=== PATIENT | female | born 2000 | race Caucasian/White ===

== ENCOUNTER 2022-02-27 10:18 | Emergency (ER) | payer SELFPAY ==
[~2022-02-27] VITALS: Ht 182.9 cm; Wt 70.3 kg
[2022-02-27 10:20] VITALS: BP 128/89
== END 2022-02-27 10:51 | disposition left against medical advice (07) ==
LOC: EDUNIT# 10:18 → EDBD 10:18 → ER 10:18
DX: H92.01 Otalgia, right ear (principal); Z53.21 Procedure and treatment not carried out due to patient leaving prior to being seen by health care provider

== ENCOUNTER 2022-03-01 00:17 | Emergency (ER) | payer MEDICAID, OTHER ==
[2022-03-01 00:43] VITALS: BP 121/74
== END 2022-03-01 05:07 | disposition left against medical advice (07) ==
LOC: ER 00:17
DX: R22.0 Localized swelling, mass and lump, head (principal); R51.9 Headache, unspecified; Z53.21 Procedure and treatment not carried out due to patient leaving prior to being seen by health care provider

== ENCOUNTER 2022-05-27 20:14 | Emergency (ER) | payer MEDICAID ==
[~2022-05-27] VITALS: Ht 182.9 cm; Wt 68.0 kg
[2022-05-27 23:16] LABS: Urine Bacteria FEW /hpf (None Seen); Urine Blood 1+ /uL (Negative); Urine Mucus FEW (None Seen); Urine Specific Gravity 1.029 (1.001-1.035); Urine WBC 40 /hpf (0 - 5)
[2022-05-28] MEDS ORDERED: DOXY-346 PO (00:53)
[2022-05-28] MEDS ORDERED: PENICILLIN G BENZ 1200000 UNITS/2 ML SYRG IM ONE (01:00)
[2022-05-28] MEDS ORDERED: ACETAMINOPHEN/CODEINE#3 (300/30mg) TAB PO ONE (01:00)
[2022-05-28] MEDS ORDERED: cefTRIAXone SOD 500 MG VL IM ONE (01:00)
[2022-05-28 01:59] VITALS: BP 131/68
== END 2022-05-28 02:04 | disposition home or self-care (01) ==
LOC: ER 20:14
DX: A51.9 Early syphilis, unspecified (principal); J45.909 Unspecified asthma, uncomplicated; F17.210 Nicotine dependence, cigarettes, uncomplicated; F12.10 Cannabis abuse, uncomplicated; Z59.00 Homelessness unspecified
CPT/HCPCS: 81001; 96372; 99284; J0561; J0696

== ENCOUNTER 2023-03-29 18:05 | Observation (INO) | payer MEDICAID ==
[~2023-03-29] VITALS: Ht 177.8 cm; Wt 77.1 kg
[~2023-03-29 18:05] MED LIST: DOXY-346 PO
[2023-03-29 20:47] LABS: Alcohol, Urine < 3.0 mg/dL (0-10); Amphetamine Screen, Urine POSITIVE (NEGATIVE); Barbiturate Scree,Urine NEGATIVE (NEGATIVE); Cannabinoid Screen, Urine POSITIVE (NEGATIVE)
[2023-03-29 20:55] LABS: Benzodiazephine Screen, Urine NEGATIVE (NEGATIVE); Cocaine Screen, Urine POSITIVE (NEGATIVE); Opiate Scree,Urine NEGATIVE (NEGATIVE); Phencyclidine Screen, Urine NEGATIVE (NEGATIVE)
[2023-03-29 22:18] LABS: Basophils # (auto) 0.1 10 ^3/uL (0-0.2); Basophils % (auto) 0.4 % (0.0-2.0); Eosinophils # (auto) 0.2 10 ^3/uL (0-0.8); Eosinophils % (auto) 1.6 % (0.0-7.0); Hemoglobin 11.7 g/dL (12.2-16.2); Lymphocytes % (auto) 21.7 % (10.0-50.0); Mean Corpuscular Hemoglobin 29.1 pg (28.0-32.0); Mean Corpuscular Hgb Conc. 32.6 g/dL (32.0-36.0); Mean Corpuscular Volume 89.1 fL (80.0-100.0); Monocytes # (auto) 1.1 10 ^3/uL (0-1.3); Neutrophils # (auto) 9.5 10 ^3/uL (1.6-8.6); Neutrophils % (auto) 68.3 % (37.0-80.0); Nucleated Red Blood Cells % 0.1 %; Red Blood Cells 4.04 10^6/uL (4.0-5.20); Red Cell Distribution Width 14.3 % (11.8-14.3); White Blood Cell 13.9 10^3/uL (4.4-10.8)
[2023-03-29 22:34] LABS: INR 0.92 (0.9-1.15); Partial Thromboplastin Time 26.9 SEC (24.5-34.5); Prothrombin Time 9.7 sec (9.3-11.8)
[2023-03-29 22:37] LABS: Albumin 2.8 g/dL (3.4-5.0); Calcium 8.4 mg/dL (8.5-10.1); Potassium 3.5 mmol/L (3.5-5.1)
[2023-03-29 22:40] LABS: BUN/Creatinine Ratio 10.5 (10.0-20.0); Bilirubin, Total 0.4 mg/dL (0.2-1.0); Total Protein 6.6 g/dL (6.4-8.2)
[2023-03-29] MEDS ORDERED: PRENCAP11 PO (23:32)
[2023-03-31 08:06] LABS: Rubella Antibodies, IgG 4.03 index (Immune >0.99)
== END 2023-03-30 01:40 | disposition home or self-care (01) ==
LOC: LDRP 18:05
PROVIDERS: ADMIT Obstetrics & Gynecology; ATTEND Obstetrics & Gynecology
DX: O99.322 Drug use complicating pregnancy, second trimester (principal); F15.10 Other stimulant abuse, uncomplicated; F12.10 Cannabis abuse, uncomplicated; O09.32 Supervision of pregnancy with insufficient antenatal care, second trimester; O99.332 Smoking (tobacco) complicating pregnancy, second trimester; F17.210 Nicotine dependence, cigarettes, uncomplicated; Z3A.26 26 weeks gestation of pregnancy
CPT/HCPCS: 36415; 59025; 76805; 80053; 80307; 81002; 83036; 85025; 85610; 85730; 86592; 86703; 86762; 86850; 86900; 86901; 87340; 94760; G0378

== ENCOUNTER 2023-06-03 11:50 | Observation (INO) | payer MEDICAID ==
[~2023-06-03 11:50] MED LIST changes: -DOXY-346 PO; +PRENCAP11 PO
== END 2023-06-03 13:32 | disposition home or self-care (01) ==
LOC: UNDOADMOB 11:50 → LDRP 11:50 → UNDODISOB 13:32
PROVIDERS: ADMIT Obstetrics & Gynecology; ATTEND Obstetrics & Gynecology
DX: O98.113 Syphilis complicating pregnancy, third trimester (principal); O26.893 Other specified pregnancy related conditions, third trimester; N89.8 Other specified noninflammatory disorders of vagina; Z3A.36 36 weeks gestation of pregnancy
CPT/HCPCS: 59025; 76818; 81002; 94760; G0378

== ENCOUNTER 2023-06-27 15:05 | Observation (INO) | payer MEDICAID | END 2023-06-27 16:52 | disposition home or self-care (01) | LOC: LDRP 15:05 → UNDOADMOB 15:05 → LDRP 15:12 → UNDODISOB 16:52 | PROVIDERS: ADMIT Obstetrics & Gynecology; ATTEND Obstetrics & Gynecology | DX: O99.323 Drug use complicating pregnancy, third trimester (principal); O99.333 Smoking (tobacco) complicating pregnancy, third trimester; O98.213 Gonorrhea complicating pregnancy, third trimester; O98.113 Syphilis complicating pregnancy, third trimester; O62.9 Abnormality of forces of labor, unspecified; F12.10 Cannabis abuse, uncomplicated; A53.9 Syphilis, unspecified; A54.9 Gonococcal infection, unspecified; F17.210 Nicotine dependence, cigarettes, uncomplicated; Z3A.39 39 weeks gestation of pregnancy | CPT/HCPCS: 59025; 76818; 81002; G0378 ==

== ENCOUNTER 2023-06-30 04:51 | Inpatient (IN) | payer MEDICAID ==
[~2023-06-30] VITALS: Ht 175.3 cm; Wt 87.5 kg
[2023-06-30] MEDS ORDERED: PENICILLIN G POT 5MIL/D5 50ML 50 ML IV ONE (05:15)
[2023-06-30] MEDS ORDERED: LACTATED RINGER'S 1,000 ML IV SCH (05:15)
[2023-06-30] MEDS ORDERED: LIDOCAINE 2%HCL (LOCAL ANESTH.) INJ 20ML MDV IJ PRN (05:15)
[2023-06-30] MEDS ORDERED: PHISODERM TOP SOLN 240ML BTL TOP PRN (05:15)
[2023-06-30] MEDS ORDERED: PROMETHAZINE HCL 25 MG/ML 1ML IV PRN (05:15)
[2023-06-30] MEDS ORDERED: LACT. RINGERS/OXYTOCIN 20UNITS 1,000 ML IV ONE (05:42)
[2023-06-30] MEDS ORDERED: LACT. RINGERS/OXYTOCIN 20UNITS 500 ML IV ONE ×2 (05:45→06:15)
[2023-06-30] MEDS ORDERED: METHYLERGONOVINE MALEATE 0.2 MG/ML AMP IM PRN (05:45)
[2023-06-30] MEDS ORDERED: CARBOPROST TROMETHAMINE 250 MCG/1ML VIAL IM PRN (05:45)
[2023-06-30] MEDS ORDERED: miSOPROStol 100 mcg TAB SL PRN (05:45)
[2023-06-30] MEDS ORDERED: miSOPROStol 100 mcg TAB PR PRN (05:45)
[2023-06-30 06:14] LABS: Basophils # (auto) 0.2 10 ^3/uL (0-0.2); Basophils % (auto) 0.9 % (0.0-2.0); Eosinophils # (auto) 0.2 10 ^3/uL (0-0.8); Eosinophils % (auto) 0.9 % (0.0-7.0); Hematocrit 37.9 % (36.0-46.0); Hemoglobin 12.5 g/dL (12.2-16.2); Lymphocytes % (auto) 14.9 % (10.0-50.0); Mean Corpuscular Hemoglobin 28.6 pg (28.0-32.0); Mean Corpuscular Hgb Conc. 33.1 g/dL (32.0-36.0); Mean Corpuscular Volume 86.6 fL (80.0-100.0); Monocytes # (auto) 1.2 10 ^3/uL (0-1.3); Monocytes % (auto) 6.1 % (0.0-12.0); Neutrophils # (auto) 15.5 10 ^3/uL (1.6-8.6); Neutrophils % (auto) 77.2 % (37.0-80.0); Nucleated Red Blood Cells % 0.1 %; Red Blood Cells 4.37 10^6/uL (4.0-5.20); Red Cell Distribution Width 16.3 % (11.8-14.3); White Blood Cell 20.1 10^3/uL (4.4-10.8)
[2023-06-30 06:27] LABS: Alanine Aminotransferase 12 U/L (7-40); Albumin 3.8 g/dL (3.2-4.8); Alkaline Phosphatase 168 U/L (46-116); Anion Gap 9 (5-15); Aspartate Aminotransferase 12 U/L (13-40); BUN/Creatinine Ratio 11.1 (10.0-20.0); Blood Urea Nitrogen 6 mg/dL (9-23); Calcium 8.6 mg/dL (8.7-10.4); Carbon Dioxide 20 mmol/L (20-30); Chloride 108 mmol/L (98-107); Glucose 89 mg/dL (74-106); Potassium 3.6 mmol/L (3.5-5.1); Sodium 137 mmol/L (136-145)
[2023-06-30 06:35] LABS: INR 0.94 (0.9-1.15); Prothrombin Time 9.9 sec (9.3-11.8)
[2023-06-30 06:43] LABS: Fern Testing Positive
[2023-06-30] MEDS ORDERED: ePHEDrine SULFATE 50 MG/ML AMP IV ONE (07:00)
[2023-06-30] MEDS ORDERED: ROPIVACAINE HCL 200 ML EPI SCH (07:00)
[2023-06-30] MEDS ORDERED: ROPIVACAINE HCL 0 ML ONE (07:03)
[2023-06-30 08:03] LABS: Urine Bacteria NONE SEEN /hpf (None Seen); Urine Blood Negative /uL (Negative); Urine Clarity Clear (Clear); Urine Color Yellow (Yellow); Urine Mucus FEW (None Seen); Urine Protein, UAD TRACE (Negative); Urine Specific Gravity 1.022 (1.001-1.035); Urine Urobilinogen Normal (Negative); Urine WBC 1 /hpf (0 - 5); Urine pH 6.5 (5.0-8.0)
[2023-06-30 08:14] LABS: Amphetamine Screen, Urine Neg (NEGATIVE); Barbiturate Scree,Urine Neg (NEGATIVE); Benzodiazephine Screen, Urine Neg (NEGATIVE); Cocaine Screen, Urine Neg (NEGATIVE)
[2023-06-30 08:15] LABS: Cannabinoid Screen, Urine Pos (NEGATIVE); Opiate Scree,Urine Neg (NEGATIVE); Phencyclidine Screen, Urine Neg (NEGATIVE)
[2023-06-30] MEDS ORDERED: ONDANSETRON ODT 4 MG TAB PO PRN (08:45)
[2023-06-30] MEDS ORDERED: ACETAMINOPHEN 325 MG TAB PO PRN (08:45)
[2023-06-30] MEDS ORDERED: PENICILLIN G POTASSIUM 2,500,000 UNITS in D5W 5% 50 ML IV SCH (09:15)
[2023-06-30] MEDS: WITCH HAZEL-GLYCERIN PAD TOP PRN (09:47)
[2023-06-30] MEDS: DERMOPLAST 60ML BOTTLE TOP PRN (09:47)
[2023-06-30 11:00] VITALS: BP 129/69; PULSE 87; RESP 18; TEMP 98.8; O2SAT 98
[2023-06-30 15:20] VITALS: BP 111/61; PULSE 72; RESP 18; TEMP 98.7; O2SAT 98
[2023-06-30] MEDS: IBUPROFEN 600 MG TAB PO PRN ×2 (15:33→22:39)
[2023-06-30 18:50] VITALS: BP 116/62; PULSE 90; RESP 18; TEMP 98.9; O2SAT 96
[2023-06-30 22:40] VITALS: BP 105/82; PULSE 86; RESP 18; TEMP 98.5; O2SAT 97
[2023-07-01 03:00] VITALS: BP 110/68; PULSE 80; RESP 16; TEMP 98.2; O2SAT 94
[2023-07-01] MEDS: IBUPROFEN 600 MG TAB PO PRN (05:40)
[2023-07-01 07:12] VITALS: BP 117/80; PULSE 58; RESP 17; TEMP 97.9; O2SAT 96
[2023-07-01 10:53] VITALS: BP 114/76; PULSE 58; RESP 17; TEMP 97.7; O2SAT 96
[2023-07-01] MEDS: DERMOPLAST 60ML BOTTLE TOP PRN (11:01)
[2023-07-01] MEDS: WITCH HAZEL-GLYCERIN PAD TOP PRN (11:01)
[2023-07-05 19:06] LABS: Treponema pallidum Ab (FTA-Ab) Reactive (Non Reactive)
== END 2023-07-01 12:30 | disposition home or self-care (01) | DRG 560 ==
LOC: UNDOADMOB 04:51 → LDRP 04:51 → OBSVTOIN 05:03 → LDRP 05:03 → INTOOBSV 05:03 → LDRP 08:14
PROVIDERS: ADMIT Obstetrics & Gynecology; ATTEND Obstetrics & Gynecology
PROC: 0UQMXZZ Repair Vulva, External Approach (ICD-10-PCS; principal; 2023-06-30)
PROC: 10E0XZZ Delivery of Products of Conception, External Approach (ICD-10-PCS; 2023-06-30)
DX: O42.92 Full-term premature rupture of membranes, unspecified as to length of time between rupture and onset of labor (principal); Z37.0 Single live birth; J45.909 Unspecified asthma, uncomplicated; O99.52 Diseases of the respiratory system complicating childbirth; O71.82 Other specified trauma to perineum and vulva; Z3A.39 39 weeks gestation of pregnancy
CPT/HCPCS: 36415; 59025; 59409; 62282; 80053; 80307; 81001; 81002; 84112; 85025; 85610; 85730; 86592; 86850; 86900; 86901; 94760; 96360; 96361; 96365; 96366; 96372; G0378; J2590; J7060